=== PATIENT | female | born 1935 | race Caucasian/White ===

== ENCOUNTER → 2017-12-06 | Outpatient (CLI) | payer MEDICARE ==
[~2017-12-06] MED LIST: CHOL100012 PO; GLUC15006 PO; LEVO50TA5 PO; MULT-230 PO; OMEG-69 PO; TRAV5DRO EACHEYE; VIT1TABL34 PO
[2017-12-06 14:18] LABS: BASOPHILS # (AUTO) 0.05 x10^3/uL (0-0.1); BASOPHILS % (AUTO) 1 % (0-1); EOSINOPHILS # (AUTO) 0.14 x10^3/uL (0-0.4); EOSINOPHILS % (AUTO) 3 % (1-7); LYMPHOCYTES # (AUTO) 2.12 x10^3/uL (1-3.4); LYMPHOCYTES % (AUTO) 37 % (22-44); MD NO; MEAN CORPUSCULAR HEMOGLOBIN 30.4 pg (27.0-34.8); MEAN CORPUSCULAR HGB CONC 33.9 g/dL (32.4-35.8); MEAN CORPUSCULAR VOLUME 89.8 fL (80-100); MEAN PLATELET VOLUME 7.6 fL (7.4-10.4); MONOCYTES # (AUTO) 0.61 x10^3/uL (0.2-0.8); MONOCYTES % (AUTO) 11 % (2-9); NEUTROPHILS # (AUTO) 2.76 x10^3/uL (1.8-6.8); NEUTROPHILS % (AUTO) 49 % (42-75); PLATELET COUNT 265 x10^3/uL (130-400); RED BLOOD COUNT 4.44 x10^6/uL (3.82-5.3); RED CELL DISTRIBUTION WIDTH 13.7 % (9.6-15.2)
[2017-12-06 14:20] LABS: INTERNATIONAL NORMALIZED RATIO 1.05 (0.93-1.1); PROTHROMBIN TIME 10.9 Seconds (9.6-11.5)
[2017-12-06 14:21] LABS: ANION GAP 7 mmol/L (5-15); CALCIUM 8.8 mg/dL (8.5-10.1); CHLORIDE 102 mmol/L (98-107); CREATININE 0.76 mg/dL (0.55-1.02)
[2017-12-06 14:58] LABS: MICROSCOPIC AUTO
[2017-12-06 15:04] LABS: CULTURE INDICATED? YES
== END | disposition home or self-care (01) ==
LOC: STAR 12:39
PROVIDERS: ATTEND Neurological Surgery
DX: Z01.818 Encounter for other preprocedural examination (principal); M50.30 Other cervical disc degeneration, unspecified cervical region
CPT/HCPCS: 36415; 71046; 80048; 81001; 85025; 85610; 85730; 87086; 93005

== ENCOUNTER 2017-12-18 06:35 | Inpatient (IN) | payer MEDICARE ==
[~2017-12-18] VITALS: Ht 160 cm; Wt 60.6 kg
[2017-12-18] MEDS ORDERED: THROMBIN 5,000 UNIT VIAL TP ONE (06:42)
[2017-12-18] MEDS ORDERED: BACITRACIN 50,000 UNIT ONE (06:42)
[2017-12-18] MEDS ORDERED: BUPIVACAINE/PF-EPI 0.5% 1:200K ONE (06:42)
[2017-12-18] MEDS ORDERED: LACTATED RINGERS 1,000 ML IV SCH (07:39)
[2017-12-18] MEDS ORDERED: ACETAMINOPHEN 500 MG TABLET PO ONE (08:00)
[2017-12-18] MEDS ORDERED: ONDANSETRON ODT 8 MG PO ONE (08:00)
[2017-12-18] MEDS ORDERED: FENTANYL PF 100 MCG/2ML ONE (08:56)
[2017-12-18] MEDS ORDERED: ROCURONIUM 10 MG/ML,10ML ONE (09:42)
[2017-12-18] MEDS ORDERED: SUCCINYLCHOLINE 20 MG/ML, 10ML ONE (09:42)
[2017-12-18] MEDS ORDERED: ONDANSETRON 2MG/ML, 2ML IV PRN ×2 (11:00→13:30)
[2017-12-18] MEDS ORDERED: MEPERIDINE/PF 25MG/0.5ML IVPush PRN (11:00)
[2017-12-18] MEDS ORDERED: ALBUTEROL/IPRATROPIUM 2.5MG/0.5MG, 3 ML NPPB PRN (11:00)
[2017-12-18] MEDS ORDERED: PROMETHAZINE 25 MG SUPP PR PRN (11:00)
[2017-12-18] MEDS ORDERED: SCOPOLAMINE PATCH, 1.5MG PATCH.TD72 TD PRN (11:00)
[2017-12-18] MEDS ORDERED: MIDAZOLAM 1 MG/ML, 2ML IV PRN (11:00)
[2017-12-18] MEDS ORDERED: LABETALOL 5MG/ML, 20ML IV PRN (11:00)
[2017-12-18] MEDS ORDERED: FENTANYL PF 100 MCG/2ML IV PRN (11:00)
[2017-12-18] MEDS ORDERED: OXYcodone 5 MG/5 ML ORAL.SOL UDC PO PRN (11:00)
[2017-12-18] MEDS ORDERED: ONDANSETRON 2MG/ML, 2ML ONE (11:05)
[2017-12-18] MEDS ORDERED: PROPOFOL 10 MG/ML, 20ML ONE (11:05)
[2017-12-18] MEDS ORDERED: CEFAZOLIN 1,000 MG ONE (11:05)
[2017-12-18] MEDS ORDERED: DEXAMETHASONE 4 MG/ML, 1ML ONE (11:05)
[2017-12-18] MEDS ORDERED: OXYcodone 5 MG/5 ML ORAL.SOL UDC ONE (11:38)
[2017-12-18] MEDS ORDERED: HYDROmorphone 2 MG/ML, 1ML ONE (12:07)
[2017-12-18] MEDS: HYDROmorphone 2 MG/ML, 1ML IV PRN ×2 (12:09→12:25)
[2017-12-18] MEDS ORDERED: PROPOFOL 50 ML ONE (13:00)
[2017-12-18] MEDS ORDERED: DIPHENHYDRAMINE 50 MG/ML, 1ML IVPush PRN (13:30)
[2017-12-18] MEDS ORDERED: MAGNESIUM HYDROXIDE 8%, 30ML UDC PO PRN (13:30)
[2017-12-18] MEDS ORDERED: TIZANIDINE 2MG TABLET PO PRN (13:30)
[2017-12-18] MEDS ORDERED: BISACODYL 10 MG SUPP PR PRN (13:30)
[2017-12-18] MEDS ORDERED: morphine SULFATE 10 MG/ML, 1ML IV PRN (13:30)
[2017-12-18] MEDS ORDERED: OXYcodone/APAP 5/325MG TABLET PO PRN (13:30)
[2017-12-18] MEDS ORDERED: PROMETHAZINE 25 MG/ML, 1ML IM PRN (13:30)
[2017-12-18] MEDS ORDERED: DIPHENHYDRAMINE 25 MG CAPSULE PO PRN (13:30)
[2017-12-18 14:00] VITALS: BP 125/76
[2017-12-18] MEDS: NS + 20MEQ KCL 1,000 ML IV SCH ×2 (14:21→23:30)
[2017-12-18] MEDS ORDERED: CEFAZOLIN PMX 1GM/50ML 50 ML IVPB SCH (16:00)
[2017-12-18] MEDS: CEFAZOLIN PMX 1GM/50ML 50 ML IVPB SCH (18:34)
[2017-12-18 19:49] VITALS: BP 135/68
[2017-12-18] MEDS ORDERED: TRAVOPROST OPHTH 0.004%, 2.5ML EACHEYE SCH (21:00)
[2017-12-18] MEDS: HYDROcodone/APAP 10/325 MG TABLET PO PRN (21:32)
[2017-12-19 01:15] VITALS: BP 122/73
[2017-12-19] MEDS: CEFAZOLIN PMX 1GM/50ML 50 ML IVPB SCH (02:52)
[2017-12-19 03:51] VITALS: BP 119/61
[2017-12-19] MEDS ORDERED: LEVOTHYROXINE 25 MCG TABLET ONE (05:35)
[2017-12-19] MEDS ORDERED: LEVOTHYROXINE 100 MCG TABLET ONE (05:36)
[2017-12-19] MEDS ORDERED: LEVOTHYROXINE 50 MCG TABLET PO SCH (06:00)
[2017-12-19 07:23] VITALS: BP 123/69
[2017-12-19] MEDS ORDERED: HYDR-3307 PO (08:31)
[2017-12-19] MEDS ORDERED: TIZA2TAB PO (08:31)
[2017-12-19] MEDS: HYDROcodone/APAP 10/325 MG TABLET PO PRN (08:31)
[2017-12-19] MEDS: NS + 20MEQ KCL 1,000 ML IV SCH (08:34)
[2017-12-19] MEDS ORDERED: SENNA/DOCUSATE TABLET PO SCH (09:00)
[2017-12-19] MEDS ORDERED: TRAVOPROST OPHTH 0.004%, 2.5ML EACHEYE SCH (09:00)
== END 2017-12-19 10:19 | disposition home or self-care (01) | DRG 473 ==
LOC: OUT 06:35 → 4NOR 12:44 → OUT 12:51 → 4NOR 12:51 → DCLOUNGE 12-19 10:06
PROVIDERS: ADMIT Neurological Surgery; ATTEND Neurological Surgery
PROC: 0RB30ZZ Excision of Cervical Vertebral Disc, Open Approach (ICD-10-PCS; 2017-12-18)
PROC: 4A11X4G Monitoring of Peripheral Nervous Electrical Activity, Intraoperative, External Approach (ICD-10-PCS; 2017-12-18)
PROC: 0RG20A0 Fusion of 2 or more Cervical Vertebral Joints with Interbody Fusion Device, Anterior Approach, Anterior Column, Open Approach (ICD-10-PCS; principal; 2017-12-18 09:30)
DX: M50.323 Other cervical disc degeneration at C6-C7 level (principal); E03.9 Hypothyroidism, unspecified; M19.90 Unspecified osteoarthritis, unspecified site; Z91.040 Latex allergy status; Z88.8 Allergy status to other drugs, medicaments and biological substances; Z91.09 Other allergy status, other than to drugs and biological substances; Z86.718 Personal history of other venous thrombosis and embolism; Z85.3 Personal history of malignant neoplasm of breast
CPT/HCPCS: 72040; 95938; 95941; C1713; G0378; J0690; J1100; J1170; J2270; J2405; J2704; J3010; J3480; Q0162; J0330; J7120